=== PATIENT | female | born 1995 | race Caucasian/White ===

== ENCOUNTER 2019-11-17 16:54 | Emergency (ER) | payer OTHER, BC ==
--- NOTE | 2019-11-17 18:26 | EDM.PDOC ---
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 This particular type of gecko does have teeth. It broke the skin over the left first MCP. She was concerned so she came to emergency department. No other symptoms. Bleeding is controlled. 2 small puncture wounds that she shows me. No other associated signs or symptoms. No other modifying, aggravating or alleviating factors. Review of systems: A 10-point review of systems, other than pertinent positives and negatives as stated per HPI, is otherwise negative. Past medical history: As per history of present illness and as reviewed below otherwise noncontributory. Surgical history: As per history of present illness and as reviewed below otherwise noncontributory. Social history: No reported history of drug or alcohol abuse. Family history: As per history of present illness and as reviewed below otherwise noncontributory. Physical exam: VITAL SIGNS: Reviewed. GENERAL: In no apparent distress. HEAD: No signs of head trauma. EYES: Pupils are equal. Extraocular motions intact. EARS: Hearing grossly intact. MOUTH: Oropharynx is normal. NECK: No adenopathy, no JVD. CHEST: Chest with clear breath sounds bilaterally. No wheezes, rales, or rhonchi. CARDIAC: Regular rate and rhythm. Normal S1 and S2, without murmurs, gallops, or rubs. VASCULAR: Peripheral pulses normal and equal in all extremities. ABDOMEN: Soft, without detectable tenderness. No sign of distention. No rebound or guarding, and no masses palpated. MUSCULOSKELETAL: Good range of motion of all major joints. Extremities without clubbing, cyanosis or edema. NEUROLOGIC EXAM: Alert and oriented x 3. No focal sensory or motor deficits. Speech normal. Follows commands. PSYCHIATRIC: Mood normal. SKIN: Puncture wounds over the left first MCP. There is small. No surrounding cellulitis. Initial Differential Diagnosis & Plan: Infection, puncture wound, tendinitis Range of motion is normal. No evidence of fracture. No evidence of current infection. Empiric antibiotics for prophylaxis. Definitive disposition and diagnosis as appropriate pending reevaluation and review of above. Left Finger-Index Pain Score (Numeric/FACES): 2 - Related Data Allergies Allergy/AdvReac Type Severity Reaction Status Date / Time No Known Allergies Allergy Verified 11/17/19 17:09 Home Meds: Home Meds Amoxicillin/Clavulanate K [Augmentin 875-125 MG] 1 tab PO BID 7 Days #14 tablet 11/17/19 [Rx] Control 1 tab PO DAILY 11/17/19 [History] Lactobacillus 3/Fos/Pantethine [Probiotic & Acidophilus] 1 each PO BID 30 Days # 60 capsule 11/17/19 [Rx] Past Medical History - Past Health History Medical/Surgical History: Denies Medical/Surgical History HEENT History: Reports: None Cardiovascular History: Reports: None Respiratory History: Reports: None Gastrointestinal History: Reports: None Genitourinary History: Reports: None CRIMINAL ATTORNEY History: Reports: None Musculoskeletal History: Reports: None Neurological History: Reports: None Psychiatric History: Reports: None Endocrine/Metabolic History: Reports: None Hematologic History: Reports: None Immunologic History: Reports: None Oncologic (Cancer) History: Reports: None Dermatologic History: Reports: None - Infectious Disease History Infectious Disease History: Reports: C-Difficile - Past Surgical History Head Surgeries/Procedures: Reports: None Social & Family History - Family History Family Medical History: Noncontributory - Tobacco Use Smoking Status *Q: Never Smoker Second Hand Smoke Exposure: No - Caffeine Use Caffeine Use: Reports: None - Recreational Drug Use Recreational Drug Use: No ED ROS GENERAL - Review of Systems Review Of Systems: Unable To Obtain (noted) Reason Not Obtained: noted ED EXAM, ANIMAL BITE - Physical Exam Exam: See Below (noted) Course - Vital Signs Last Recorded V/S: Last Vital Signs Temp 97.7 F 11/17/19 17:10 Pulse 90 11/17/19 17:10 Resp 15 11/17/19 17:10 BP 132/92 H 11/17/19 17:10 Pulse Ox 99 11/17/19 17:10 Departure - Departure Time of Disposition: 18:23 Disposition: Home, Self-Care 01 Clinical Impression: Reptile bite - Discharge Information *PRESCRIPTION DRUG MONITORING PROGRAM REVIEWED*: Not Applicable *COPY OF PRESCRIPTION DRUG MONITORING REPORT IN PATIENT MAK: Not Applicable Prescriptions: Amoxicillin/Clavulanate K [Augmentin 875-125 MG] 1 tab PO BID 7 Days #14 tablet Lactobacillus 3/Fos/Pantethine [Probiotic & Acidophilus] 1 each PO BID 30 Days # 60 capsule Instructions: Animal Bite, Adult, [id number] Referrals: PCP,Inés [Primary Care Provider] - [facility] [Outside] Forms: ED Department Discharge Additional Instructions: The following information is given to patients seen in the emergency department who are being discharged to home. This information is to outline your options for follow-up care. We provide all patients seen in our emergency department with a follow-up referral. The need for follow-up, as well as the timing and circumstances, are variable depending upon the specifics of your emergency department visit. If you don't have a primary care physician on staff, we will provide you with a referral. We always advise you to contact your personal physician following an emergency department visit to inform them of the circumstance of the visit and for follow-up with them and/or the need for any referrals to a consulting specialist. The emergency department will also refer you to a specialist when appropriate. This referral assures that you have the opportunity for follow-up care with a specialist. All of these measure are taken in an effort to provide you with optimal care, which includes your follow-up. Under all circumstances we always encourage you to contact your private physician who remains a resource for coordinating your care. When calling for follow-up care, please make the office aware that this follow-up is from your recent emergency room visit. If for any reason you are refused follow-up, please contact the [facility] Emergency Department at and asked to speak to the emergency department charge nurse. Thank you for coming to [facility] today for your emergency care. I was very pleased to take care of you today. Thank you for your understanding while we saw emergency patients it was very appreciated. You suffered a reptile bite that broke the skin. Sometimes these reptiles have Salmonella. We will give you Augmentin for this bite. If you develop a fever, cellulitis in the area, worsening of any type please return immediately to the emergency department. You indicated that your tetanus was up-to-date. We will not update your tetanus shot. Please return to emergency department for any questions or concerns. Sepsis Event Note - Evaluation Sepsis Screening Result: No Definite Risk - Focused Exam Vital Signs: Vital Signs Temp Pulse Resp BP Pulse Ox 11/17/19 17:10 97.7 F 90 15 132/92 H 99 Date Exam was Performed: 11/17/19 Time Exam was Performed: 18:27
== END 2019-11-17 18:33 | disposition home or self-care (01) ==
LOC: MW.ED 16:54
DX: S61.452A Open bite of left hand, initial encounter (principal); W59.81XA Bitten by other nonvenomous reptiles, initial encounter
CPT/HCPCS: 99282; 99283